=== PATIENT | male | born 1975 | race Caucasian/White ===

== ENCOUNTER 2021-06-11 14:21 | Emergency (ER) | payer MEDICAID ==
[~2021-06-11] VITALS: Ht 170.2 cm; Wt 113.6 kg
[2021-06-11 15:02] VITALS: BP 137/109
[2021-06-11] MEDS ORDERED: KEP500T PO (15:53)
[2021-06-11] MEDS ORDERED: LEVE10002 PO (16:37)
== END 2021-06-11 16:24 | disposition home or self-care (01) ==
LOC: ER 14:21
DX: R56.9 Unspecified convulsions (principal); Z76.0 Encounter for issue of repeat prescription
CPT/HCPCS: 99281

== ENCOUNTER 2022-01-26 17:04 | Emergency (ER) | payer MEDICAID ==
[~2022-01-26 17:04] MED LIST: LEVE10002 PO
== END 2022-01-26 19:24 | disposition left against medical advice (07) ==
LOC: ER 17:05
DX: U09.9 Post COVID-19 condition, unspecified (principal); Z53.21 Procedure and treatment not carried out due to patient leaving prior to being seen by health care provider

== ENCOUNTER 2023-10-08 15:39 | Inpatient (IN) | payer MEDICAID ==
[~2023-10-08] VITALS: Ht 170.2 cm; Wt 121.8 kg
[2023-10-08 16:03] LABS: BASOPHILS % (AUTO) 0.3 % (0-1); EOSINOPHILS # (AUTO) 0.1 X10'3 (0-0.9); EOSINOPHILS % (AUTO) 1.2 % (0-6); HEMATOCRIT 45.1 % (42.0-52.0); HEMOGLOBIN 15.5 g/dl (14.0-17.9); LYMPHOCYTES # (AUTO) 1.6 X10'3 (1.1-4.8); LYMPHOCYTES % (AUTO) 16.3 % (21-51); MEAN CORPUSCULAR HEMOGLOBIN 29.7 PG (27.0-31.0); MEAN CORPUSCULAR HGB CONC 34.3 g/dL (33.0-36.5); MEAN CORPUSCULAR VOLUME 86.7 FL (78-98); MEAN PLATELET VOLUME 7.5 FL (7.4-10.4); MONOCYTES # (AUTO) 0.6 X10'3 (0-0.9); NEUTROPHILS # (AUTO) 7.4 X10'3 (1.8-7.7); NEUTROPHILS % (AUTO) 76.2 % (42-75); PLATELET COUNT 220 X10'3 (140-440); RED BLOOD COUNT 5.21 X10'6 (4.70-6.10); RED CELL DISTRIBUTION WIDTH 12.9 % (11.5-14.5); WHITE BLOOD COUNT 9.8 X10'3 (4.5-11.0)
[2023-10-08 16:30] LABS: ALANINE AMINOTRANSFERASE 48 U/L (12-78); ALBUMIN 3.8 G/DL (3.4-5.0); ALBUMIN/GLOBULIN RATIO 0.9 (1.1-1.5); ALKALINE PHOSPHATASE 91 IU/L (46-116); ANION GAP 8 (8-16); ASPARTATE AMINO TRANSFERASE 21 U/L (10-37); BILIRUBIN,TOTAL 0.7 MG/DL (0.1-1.0); BLOOD UREA NITROGEN 11 MG/DL (7-18); BUN/CREATININE RATIO 10.7 (10.0-20.0); CALCIUM 8.4 MG/DL (8.5-10.1); CHLORIDE 101 MMOL/L (99-107); CREATININE 1.03 MG/DL (0.60-1.10); GLUCOSE 125 MG/DL (70-104); SODIUM 137 MMOL/L (135-145); TOTAL CARBON DIOXIDE 27.6 MMOL/L (24-32); TOTAL PROTEIN 7.9 G/DL (6.4-8.2); eCRCL 83 ML/MIN; eGFR 77 ML/MIN
[2023-10-08] MEDS ORDERED: iohexol 350MG/ML 100ml bottle IV ONE (18:11)
[2023-10-08] MEDS: dexamethasone sod phosphate 10mg/ml inj IV STA (18:36)
[2023-10-08] MEDS: diphenhydrAMINE 50 mg/ml inj ONE (18:39)
[2023-10-08] MEDS: LORazepam 2 mg/ml vial IV ONE (18:40)
[2023-10-08] MEDS: LORazepam 2 mg/ml vial ONE (18:40)
[2023-10-08] MEDS: diphenhydrAMINE 50 mg/ml inj IV ONE ×2 (18:40)
[2023-10-08] MEDS ORDERED: codeine/proMETHazine 5ml UD syrup PO ONE (18:45)
[2023-10-08] MEDS ORDERED: albuterol 2.5 MG/3 ML nebule CONTNEB PRN (19:00)
[2023-10-08] MEDS: normal saline 1000ml 1,000 ML IV ONE (19:39)
[2023-10-08] MEDS: benzonatate 100mg capsule PO ONE (19:39)
[2023-10-08] MEDS: CefTRIAXone/D5W-Rocephin 1gm 50 ML IV ONE (19:39)
[2023-10-08] MEDS: azithromycin/NS 500mg/250ml 250 ML IV ONE (20:15)
[2023-10-08] MEDS: guaiFENesin 200mg/20mg codeine phos 10ml UD oral syrup PO ONE ×2 (20:16)
[2023-10-08] MEDS ORDERED: magnesium 4gm in 100ml NS 100 ML IV PRN (21:10)
[2023-10-08] MEDS ORDERED: potassium Cl 20 mEq SR tablet PO PRN (21:10)
[2023-10-08] MEDS ORDERED: magnesium 2GM in 50ml NS 50 ML IV PRN (21:10)
[2023-10-08] MEDS ORDERED: ondansetron/PF 4mg/2ml inj IV PRN (21:10)
[2023-10-08] MEDS ORDERED: potassium Cl 40MEQ/1/2NS 520ml 520 ML IV PRN (21:10)
[2023-10-08] MEDS: normal saline 1000ml 1,000 ML IV SCH (21:23)
[2023-10-08 21:31] LABS: BILIRUBIN,URINE NEGATIVE (Neg); CLARITY,URINE CLEAR (Clear); COLOR,URINE YELLOW (Yellow); GLUCOSE, URINE NEGATIVE (Neg); KETONES,URINE NEGATIVE (Neg); LEUKOCYTE ESTERASE ,URINE NEGATIVE (Neg); NITRITES, URINE NEGATIVE (Neg); OCCULT BLOOD,URINE NEGATIVE (Neg); PROTEIN,URINE NEGATIVE (Neg); UROBILINOGEN,URINE 0.2 E.U/dL (0.2-1.0)
[2023-10-08 21:33] LABS: MAGNESIUM 2.1 MG/DL (1.5-2.4); PHOSPHORUS 2.8 MG/DL (2.3-4.5)
[2023-10-08] MEDS ORDERED: albuterol 2.5 MG/3 ML nebule NEB PRN (21:40)
[2023-10-08 21:43] LABS: UA COLLECTION TYPE URINAL
[2023-10-08 21:47] VITALS: PULSE 89; RESP 16; O2SAT 94
[2023-10-08] MEDS ORDERED: LEVE10006 PO (22:06)
[2023-10-08] MEDS: levetiracetam 250mg tablet PO ONE (22:25)
[2023-10-08 23:14] VITALS: PULSE 107; RESP 18; O2SAT 93
[2023-10-08] MEDS: ipratropium/albuterol 3ml nebule NEB SCH (23:14)
[2023-10-08 23:21] VITALS: PULSE 101; RESP 16
[2023-10-09] VITALS (14 sets, daily range): BP systolic 110–130; BP diastolic 73–81; PULSE 93–115; RESP 12–19; TEMP 97.5–98.4; O2SAT 90–95
[2023-10-09] MEDS ORDERED: albuterol 2.5 MG/3 ML nebule NEB SCH
[2023-10-09] MEDS: LORazepam 1 MG tablet PO ONE (03:06)
[2023-10-09] MEDS: K and/or MAG REPLACEMENT MC SCH (08:00)
[2023-10-09 08:13] LABS: BASOPHILS % (AUTO) 0.1 % (0-1); EOSINOPHILS % (AUTO) 0 % (0-6); HEMATOCRIT 41.7 % (42.0-52.0); HEMOGLOBIN 14.2 g/dl (14.0-17.9); LYMPHOCYTES # (AUTO) 1.3 X10'3 (1.1-4.8); LYMPHOCYTES % (AUTO) 12.9 % (21-51); MEAN CORPUSCULAR HEMOGLOBIN 29.6 PG (27.0-31.0); MEAN CORPUSCULAR HGB CONC 34.1 g/dL (33.0-36.5); MEAN PLATELET VOLUME 7.7 FL (7.4-10.4); MONOCYTES # (AUTO) 0.5 X10'3 (0-0.9); MONOCYTES % (AUTO) 4.7 % (2-12); NEUTROPHILS # (AUTO) 8.2 X10'3 (1.8-7.7); NEUTROPHILS % (AUTO) 82.3 % (42-75); PLATELET COUNT 227 X10'3 (140-440); RED BLOOD COUNT 4.79 X10'6 (4.70-6.10); RED CELL DISTRIBUTION WIDTH 12.8 % (11.5-14.5); WHITE BLOOD COUNT 9.9 X10'3 (4.5-11.0)
[2023-10-09] MEDS: azithromycin 250mg tablet PO SCH (08:34)
[2023-10-09] MEDS: levetiracetam 250mg tablet PO SCH (08:35)
[2023-10-09] MEDS: benzonatate 100mg capsule PO SCH (08:35)
[2023-10-09] MEDS: heparin, porcine 5000 units/ml vial SQ SCH (08:35)
[2023-10-09] MEDS: CefTRIAXone/D5W-Rocephin 1gm 50 ML IV SCH (08:36)
[2023-10-09 08:38] LABS: ALANINE AMINOTRANSFERASE 39 U/L (12-78); ALBUMIN 3.2 G/DL (3.4-5.0); ALBUMIN/GLOBULIN RATIO 0.8 (1.1-1.5); ALKALINE PHOSPHATASE 75 IU/L (46-116); ANION GAP 7 (8-16); ASPARTATE AMINO TRANSFERASE 15 U/L (10-37); BILIRUBIN,TOTAL 0.4 MG/DL (0.1-1.0); BLOOD UREA NITROGEN 15 MG/DL (7-18); BUN/CREATININE RATIO 15.6 (10.0-20.0); CALCIUM 8.6 MG/DL (8.5-10.1); CHLORIDE 103 MMOL/L (99-107); CREATININE 0.96 MG/DL (0.60-1.10); GLUCOSE 143 MG/DL (70-104); MAGNESIUM 2.1 MG/DL (1.5-2.4); SODIUM 138 MMOL/L (135-145); TOTAL CARBON DIOXIDE 27.9 MMOL/L (24-32); TOTAL PROTEIN 7.2 G/DL (6.4-8.2); eCRCL 89 ML/MIN; eGFR 84 ML/MIN
[2023-10-10] VITALS (16 sets, daily range): BP systolic 96–135; BP diastolic 70–81; PULSE 78–98; RESP 12–20; TEMP 97.2–98; O2SAT 93–95
[2023-10-10] MEDS: guaiFENesin/DM 10ml UD oral syrup PO ONE ×2 (02:07→02:21)
[2023-10-10 06:23] LABS: ALANINE AMINOTRANSFERASE 36 U/L (12-78); ALBUMIN/GLOBULIN RATIO 0.8 (1.1-1.5); ALKALINE PHOSPHATASE 72 IU/L (46-116); ANION GAP 9 (8-16); ASPARTATE AMINO TRANSFERASE 18 U/L (10-37); BILIRUBIN,TOTAL 0.3 MG/DL (0.1-1.0); BLOOD UREA NITROGEN 15 MG/DL (7-18); CALCIUM 8.1 MG/DL (8.5-10.1); CHLORIDE 105 MMOL/L (99-107); CREATININE 0.94 MG/DL (0.60-1.10); GLUCOSE 126 MG/DL (70-104); MAGNESIUM 2.2 MG/DL (1.5-2.4); POTASSIUM 3.4 MMOL/L (3.5-5.1); SODIUM 140 MMOL/L (135-145); TOTAL CARBON DIOXIDE 26.1 MMOL/L (24-32); TOTAL PROTEIN 6.8 G/DL (6.4-8.2); eCRCL 91 ML/MIN; eGFR 86 ML/MIN
[2023-10-10 06:32] LABS: BASOPHILS % (AUTO) 0.2 % (0-1); EOSINOPHILS % (AUTO) 0.4 % (0-6); HEMATOCRIT 39.9 % (42.0-52.0); HEMOGLOBIN 13.8 g/dl (14.0-17.9); LYMPHOCYTES # (AUTO) 2.4 X10'3 (1.1-4.8); MEAN CORPUSCULAR HEMOGLOBIN 30.7 PG (27.0-31.0); MEAN CORPUSCULAR HGB CONC 34.6 g/dL (33.0-36.5); MEAN CORPUSCULAR VOLUME 88.8 FL (78-98); MEAN PLATELET VOLUME 7.9 FL (7.4-10.4); MONOCYTES # (AUTO) 0.6 X10'3 (0-0.9); MONOCYTES % (AUTO) 5.8 % (2-12); NEUTROPHILS # (AUTO) 6.9 X10'3 (1.8-7.7); NEUTROPHILS % (AUTO) 69.6 % (42-75); PLATELET COUNT 226 X10'3 (140-440); RED CELL DISTRIBUTION WIDTH 12.9 % (11.5-14.5); WHITE BLOOD COUNT 9.9 X10'3 (4.5-11.0)
[2023-10-10] MEDS: acetaminophen 325mg tablet PO PRN (09:25)
[2023-10-10] MEDS: potassium Cl 20 mEq SR tablet PO PRN (13:34)
[2023-10-11] VITALS (14 sets, daily range): BP systolic 109–133; BP diastolic 66–95; PULSE 72–103; RESP 12–20; TEMP 98–98.3; O2SAT 92–96
[2023-10-11 03:17] LABS: BASOPHILS % (AUTO) 0.3 % (0-1); EOSINOPHILS # (AUTO) 0.1 X10'3 (0-0.9); EOSINOPHILS % (AUTO) 0.9 % (0-6); HEMATOCRIT 43.1 % (42.0-52.0); HEMOGLOBIN 14.5 g/dl (14.0-17.9); LYMPHOCYTES # (AUTO) 2.4 X10'3 (1.1-4.8); LYMPHOCYTES % (AUTO) 29.3 % (21-51); MEAN CORPUSCULAR HEMOGLOBIN 29.7 PG (27.0-31.0); MEAN CORPUSCULAR HGB CONC 33.6 g/dL (33.0-36.5); MEAN CORPUSCULAR VOLUME 88.4 FL (78-98); MEAN PLATELET VOLUME 7.7 FL (7.4-10.4); MONOCYTES # (AUTO) 0.5 X10'3 (0-0.9); MONOCYTES % (AUTO) 5.9 % (2-12); NEUTROPHILS # (AUTO) 5.3 X10'3 (1.8-7.7); NEUTROPHILS % (AUTO) 63.6 % (42-75); PLATELET COUNT 231 X10'3 (140-440); RED BLOOD COUNT 4.88 X10'6 (4.70-6.10); RED CELL DISTRIBUTION WIDTH 12.9 % (11.5-14.5); WHITE BLOOD COUNT 8.3 X10'3 (4.5-11.0)
[2023-10-11 03:31] LABS: ALANINE AMINOTRANSFERASE 49 U/L (12-78); ALBUMIN 3.4 G/DL (3.4-5.0); ALBUMIN/GLOBULIN RATIO 0.9 (1.1-1.5); ALKALINE PHOSPHATASE 62 IU/L (46-116); ANION GAP 8 (8-16); ASPARTATE AMINO TRANSFERASE 23 U/L (10-37); BILIRUBIN,TOTAL 0.3 MG/DL (0.1-1.0); BLOOD UREA NITROGEN 17 MG/DL (7-18); BUN/CREATININE RATIO 16.8 (10.0-20.0); CHLORIDE 105 MMOL/L (99-107); CREATININE 1.01 MG/DL (0.60-1.10); GLUCOSE 101 MG/DL (70-104); MAGNESIUM 2.3 MG/DL (1.5-2.4); SODIUM 142 MMOL/L (135-145); TOTAL CARBON DIOXIDE 29.1 MMOL/L (24-32); TOTAL PROTEIN 7.2 G/DL (6.4-8.2); eCRCL 85 ML/MIN; eGFR 79 ML/MIN
[2023-10-11] MEDS: guaiFENesin/DM 10ml UD oral syrup PO PRN (15:51)
[2023-10-12] MEDS: benzocaine/menthol oral lozeng 1 EACH BOX MM PRN (02:35)
[2023-10-12 06:00] VITALS: BP 121/82; PULSE 87; RESP 20; TEMP 97.8; O2SAT 93
[2023-10-12 06:18] LABS: BASOPHILS % (AUTO) 0.3 % (0-1); EOSINOPHILS # (AUTO) 0.1 X10'3 (0-0.9); EOSINOPHILS % (AUTO) 1.3 % (0-6); HEMATOCRIT 44.9 % (42.0-52.0); HEMOGLOBIN 15.5 g/dl (14.0-17.9); LYMPHOCYTES # (AUTO) 2.6 X10'3 (1.1-4.8); LYMPHOCYTES % (AUTO) 28.5 % (21-51); MEAN CORPUSCULAR HEMOGLOBIN 30.2 PG (27.0-31.0); MEAN CORPUSCULAR HGB CONC 34.6 g/dL (33.0-36.5); MEAN CORPUSCULAR VOLUME 87.2 FL (78-98); MEAN PLATELET VOLUME 7.8 FL (7.4-10.4); MONOCYTES # (AUTO) 0.6 X10'3 (0-0.9); MONOCYTES % (AUTO) 6.8 % (2-12); NEUTROPHILS # (AUTO) 5.8 X10'3 (1.8-7.7); NEUTROPHILS % (AUTO) 63.1 % (42-75); PLATELET COUNT 241 X10'3 (140-440); RED BLOOD COUNT 5.14 X10'6 (4.70-6.10); RED CELL DISTRIBUTION WIDTH 12.6 % (11.5-14.5); WHITE BLOOD COUNT 9.2 X10'3 (4.5-11.0)
[2023-10-12 06:20] LABS: ALANINE AMINOTRANSFERASE 70 U/L (12-78); ALBUMIN 3.4 G/DL (3.4-5.0); ALBUMIN/GLOBULIN RATIO 0.8 (1.1-1.5); ALKALINE PHOSPHATASE 75 IU/L (46-116); ANION GAP 9 (8-16); ASPARTATE AMINO TRANSFERASE 36 U/L (10-37); BILIRUBIN,TOTAL 0.7 MG/DL (0.1-1.0); BLOOD UREA NITROGEN 19 MG/DL (7-18); BUN/CREATININE RATIO 19.8 (10.0-20.0); CALCIUM 8.8 MG/DL (8.5-10.1); CHLORIDE 100 MMOL/L (99-107); CREATININE 0.96 MG/DL (0.60-1.10); GLUCOSE 95 MG/DL (70-104); MAGNESIUM 2.2 MG/DL (1.5-2.4); SODIUM 136 MMOL/L (135-145); TOTAL CARBON DIOXIDE 27.1 MMOL/L (24-32); TOTAL PROTEIN 7.5 G/DL (6.4-8.2); eCRCL 89 ML/MIN; eGFR 84 ML/MIN
[2023-10-12 08:55] VITALS: PULSE 86; RESP 18; O2SAT 94
[2023-10-12 09:05] VITALS: PULSE 112; RESP 18
[2023-10-12] MEDS ORDERED: ROBDML PO (09:37)
[2023-10-12] MEDS ORDERED: LEVO-65 PO (09:38)
[2023-10-12] MEDS ORDERED: ALBU18HF2 IH (09:41)
[2023-10-12 10:00] VITALS: BP 111/81; PULSE 92; RESP 16; TEMP 97.7; O2SAT 92
== END 2023-10-12 16:50 | disposition home or self-care (01) | DRG 139 ==
LOC: ER 15:40 → ED HOLD 21:14 → EDBEDREQ 10-09 18:24 → SUR 3N 10-09 18:55
PROVIDERS: ADMIT Internal Medicine; ATTEND Internal Medicine
DX: J18.9 Pneumonia, unspecified organism (principal); E87.6 Hypokalemia; Z20.822 Contact with and (suspected) exposure to COVID-19; J06.9 Acute upper respiratory infection, unspecified; G40.909 Epilepsy, unspecified, not intractable, without status epilepticus; Z79.899 Other long term (current) drug therapy
CPT/HCPCS: 36415; 71045; 71275; 80053; 81003; 83605; 83735; 84100; 84132; 84484; 85025; 87040; 87081; 87502; 87503; 87634; 93005; 94640; 94760; 96365; 96367; 99285; A4615; A6258; G0378; J0456; J0696; J1100; J1200; J1644; J2060; J3490; J7030; Q9967

== ENCOUNTER 2023-10-21 16:58 | Outpatient (CLI) | payer MEDICAID ==
[~2023-10-21 16:58] MED LIST changes: +ALBU18HF2 IH; -LEVE10002 PO; +LEVE10006 PO; +ROBDML PO
== END 2023-10-21 23:59 | disposition home or self-care (01) ==
LOC: RAD 16:58
PROVIDERS: ATTEND Nurse Practitioner Family
DX: J15.9 Unspecified bacterial pneumonia (principal)
CPT/HCPCS: 71046

== ENCOUNTER 2024-02-13 14:57 | Emergency (ER) | payer MEDICAID ==
[~2024-02-13] VITALS: Ht 170.2 cm; Wt 116.4 kg
[2024-02-13 15:06] VITALS: TEMP 98.1
[2024-02-13 15:31] LABS: BILIRUBIN,URINE SMALL (Neg); CLARITY,URINE CLEAR (Clear); COLOR,URINE YELLOW (Yellow); GLUCOSE, URINE NEGATIVE (Neg); KETONES,URINE TRACE mg/dl (Neg); LEUKOCYTE ESTERASE ,URINE NEGATIVE (Neg); NITRITES, URINE NEGATIVE (Neg); OCCULT BLOOD,URINE NEGATIVE (Neg); PROTEIN,URINE 100 mg/dl (Neg)
[2024-02-13 15:36] LABS: BACTERIA,URINE NONE SEEN /HPF (Neg); MUCUS STRANDS FEW /LPF (Neg); RBC,URINE 0-2 /HPF (0-2); SQUAMOUS EPITHELIAL CELL,UR FEW /LPF (FEW); UA COLLECTION TYPE CLN CATCH MIDSTREAM; WBC,URINE NONE SEEN /HPF (0-4)
[2024-02-13 15:42] LABS: BASOPHILS % (AUTO) 0.3 % (0-1); EOSINOPHILS % (AUTO) 0.1 % (0-6); HEMATOCRIT 44.4 % (42.0-52.0); HEMOGLOBIN 15.5 g/dl (14.0-17.9); LYMPHOCYTES # (AUTO) 1.5 X10'3 (1.1-4.8); LYMPHOCYTES % (AUTO) 31.3 % (21-51); MEAN CORPUSCULAR HEMOGLOBIN 30.3 PG (27.0-31.0); MEAN CORPUSCULAR HGB CONC 34.8 g/dL (33.0-36.5); MEAN CORPUSCULAR VOLUME 87.2 FL (78-98); MONOCYTES # (AUTO) 0.5 X10'3 (0-0.9); MONOCYTES % (AUTO) 10.7 % (2-12); NEUTROPHILS # (AUTO) 2.8 X10'3 (1.8-7.7); NEUTROPHILS % (AUTO) 57.6 % (42-75); PLATELET COUNT 149 X10'3 (140-440); RED CELL DISTRIBUTION WIDTH 12.8 % (11.5-14.5); WHITE BLOOD COUNT 4.9 X10'3 (4.5-11.0)
[2024-02-13 15:58] LABS: ALANINE AMINOTRANSFERASE 106 U/L (12-78); ALBUMIN 3.9 G/DL (3.4-5.0); ALBUMIN/GLOBULIN RATIO 1.1 (1.1-1.5); ALKALINE PHOSPHATASE 55 IU/L (46-116); ANION GAP 9 (8-16); ASPARTATE AMINO TRANSFERASE 55 U/L (10-37); BILIRUBIN,TOTAL 0.9 MG/DL (0.1-1.0); BLOOD UREA NITROGEN 15 MG/DL (7-18); BUN/CREATININE RATIO 12.6 (10.0-20.0); CALCIUM 9.2 MG/DL (8.5-10.1); CHLORIDE 100 MMOL/L (99-107); CREATININE 1.19 MG/DL (0.60-1.10); GLUCOSE 130 MG/DL (70-104); LIPASE 39 U/L (16-77); POTASSIUM 3.5 MMOL/L (3.5-5.1); SODIUM 136 MMOL/L (135-145); TOTAL PROTEIN 7.5 G/DL (6.4-8.2); eCRCL 72 ML/MIN; eGFR 66 ML/MIN
[2024-02-13] MEDS: glycopyrrolate 0.2mg/ml inj IV ONE (16:23)
[2024-02-13] MEDS: normal saline 1000ML IV soln IVB ONE ×2 (16:23→17:36)
[2024-02-13] MEDS: diphenhydrAMINE 50 mg/ml inj IV ONE (16:24)
[2024-02-13] MEDS: metoclopramide 5 mg/ml inj IV ONE (16:25)
[2024-02-13] MEDS: LIDOcaine 2% Viscous 15ml cup MM ONE (16:38)
[2024-02-13] MEDS: mag hydrox/Alum hydrox/simeth 30ml oral suspension PO ONE (16:39)
[2024-02-13] MEDS: metoclopramide 5 mg/ml inj IM ONE (16:41)
[2024-02-13] MEDS: diphenhydrAMINE 50 mg/ml inj IM ONE (16:42)
[2024-02-13] MEDS ORDERED: OMEP40CA21 PO (17:34)
[2024-02-13] MEDS ORDERED: SUCR1TAB PO (17:34)
[2024-02-13] MEDS ORDERED: ONDA-243 PO (17:34)
[2024-02-13 17:45] VITALS: BP 108/71; PULSE 83; RESP 16; O2SAT 98
[2024-02-14] MEDS ORDERED: AMOX-117 PO (17:09)
== END 2024-02-13 17:51 | disposition home or self-care (01) ==
LOC: ER 14:58
DX: R10.84 Generalized abdominal pain (principal); R11.0 Nausea; Z79.899 Other long term (current) drug therapy; Z79.2 Long term (current) use of antibiotics
CPT/HCPCS: 36415; 80053; 81001; 83690; 85025; 96372; 99284; J1200; J2765

== ENCOUNTER 2024-02-14 15:41 | Emergency (ER) | payer MEDICAID ==
[~2024-02-14] VITALS: Ht 170.2 cm; Wt 120.0 kg
[~2024-02-14 15:41] MED LIST changes: +OMEP40CA21 PO; +ONDA-243 PO; +SUCR1TAB PO
[2024-02-14 16:44] LABS: BASOPHILS % (AUTO) 0.2 % (0-1); EOSINOPHILS % (AUTO) 0.5 % (0-6); HEMATOCRIT 45.3 % (42.0-52.0); HEMOGLOBIN 15.6 g/dl (14.0-17.9); LYMPHOCYTES # (AUTO) 1.8 X10'3 (1.1-4.8); LYMPHOCYTES % (AUTO) 41.9 % (21-51); MEAN CORPUSCULAR HEMOGLOBIN 29.9 PG (27.0-31.0); MEAN CORPUSCULAR HGB CONC 34.3 g/dL (33.0-36.5); MEAN PLATELET VOLUME 8.6 FL (7.4-10.4); MONOCYTES # (AUTO) 0.3 X10'3 (0-0.9); MONOCYTES % (AUTO) 7.9 % (2-12); NEUTROPHILS # (AUTO) 2.1 X10'3 (1.8-7.7); NEUTROPHILS % (AUTO) 49.5 % (42-75); PLATELET COUNT 151 X10'3 (140-440); RED BLOOD COUNT 5.21 X10'6 (4.70-6.10); WHITE BLOOD COUNT 4.2 X10'3 (4.5-11.0)
[2024-02-14 16:51] LABS: ANION GAP 10 (8-16); BLOOD UREA NITROGEN 14 MG/DL (7-18); BUN/CREATININE RATIO 10.8 (10.0-20.0); CALCIUM 8.8 MG/DL (8.5-10.1); CHLORIDE 101 MMOL/L (99-107); GLUCOSE 168 MG/DL (70-104); POTASSIUM 3.4 MMOL/L (3.5-5.1); PRO BRAIN NATRIURETIC PEPTIDE < 30 PG/ML (0-125); SODIUM 138 MMOL/L (135-145); TOTAL CARBON DIOXIDE 27.2 MMOL/L (24-32); eCRCL 66 ML/MIN; eGFR 59 ML/MIN
[2024-02-14] MEDS ORDERED: AMOX-117 PO (17:09)
[2024-02-14 17:18] VITALS: BP 142/80; PULSE 83; RESP 18; TEMP 98.9; O2SAT 96
== END 2024-02-14 17:20 | disposition home or self-care (01) ==
LOC: ER 15:41
DX: J40 Bronchitis, not specified as acute or chronic (principal); Z79.899 Other long term (current) drug therapy
CPT/HCPCS: 36415; 71046; 80048; 83605; 83880; 85025; 87040; 99284

== ENCOUNTER 2024-05-26 17:48 | Inpatient (IN) | payer MEDICAID ==
[~2024-05-26] VITALS: Ht 172.7 cm; Wt 111.3 kg
[~2024-05-26 17:48] MED LIST changes: -OMEP40CA21 PO
[2024-05-26 18:18] LABS: BASOPHILS % (AUTO) 0.4 % (0-1); EOSINOPHILS % (AUTO) 0.1 % (0-6); HEMATOCRIT 45.7 % (42.0-52.0); HEMOGLOBIN 15.9 g/dl (14.0-17.9); LYMPHOCYTES # (AUTO) 1.6 X10'3 (1.1-4.8); LYMPHOCYTES % (AUTO) 14.7 % (21-51); MEAN CORPUSCULAR HEMOGLOBIN 30.7 PG (27.0-31.0); MEAN CORPUSCULAR HGB CONC 34.9 g/dL (33.0-36.5); MEAN CORPUSCULAR VOLUME 87.9 FL (78-98); MEAN PLATELET VOLUME 7.8 FL (7.4-10.4); MONOCYTES # (AUTO) 0.6 X10'3 (0-0.9); MONOCYTES % (AUTO) 5.7 % (2-12); NEUTROPHILS # (AUTO) 8.3 X10'3 (1.8-7.7); NEUTROPHILS % (AUTO) 79.1 % (42-75); PLATELET COUNT 205 X10'3 (140-440); RED CELL DISTRIBUTION WIDTH 12.8 % (11.5-14.5); WHITE BLOOD COUNT 10.5 X10'3 (4.5-11.0)
[2024-05-26 18:31] LABS: ALANINE AMINOTRANSFERASE 37 U/L (12-78); ALBUMIN 3.8 G/DL (3.4-5.0); ALKALINE PHOSPHATASE 63 IU/L (46-116); ANION GAP 9 (8-16); ASPARTATE AMINO TRANSFERASE 16 U/L (10-37); BILIRUBIN,TOTAL 1.1 MG/DL (0.1-1.0); BLOOD UREA NITROGEN 20 MG/DL (7-18); BUN/CREATININE RATIO 16.5 (10.0-20.0); CHLORIDE 100 MMOL/L (99-107); CREATININE 1.21 MG/DL (0.60-1.10); GLUCOSE 171 MG/DL (70-104); LIPASE 162 U/L (16-77); POTASSIUM 3.8 MMOL/L (3.5-5.1); SODIUM 134 MMOL/L (135-145); TOTAL CARBON DIOXIDE 25.4 MMOL/L (24-32); TOTAL PROTEIN 7.5 G/DL (6.4-8.2); eCRCL 73 ML/MIN; eGFR 64 ML/MIN
[2024-05-26] MEDS: normal saline 1000ML IV soln IVB ONE ×2 (19:28→21:36)
[2024-05-26 20:20] LABS: BILIRUBIN,URINE SMALL (Neg); CLARITY,URINE CLEAR (Clear); COLOR,URINE YELLOW (Yellow); GLUCOSE, URINE NEGATIVE (Neg); KETONES,URINE TRACE mg/dl (Neg); LEUKOCYTE ESTERASE ,URINE NEGATIVE (Neg); OCCULT BLOOD,URINE NEGATIVE (Neg); PH,URINE 6.5 (4.8-8.0); PROTEIN,URINE 30 mg/dl (Neg)
[2024-05-26 20:34] LABS: UA COLLECTION TYPE NON-SPECIFIED
[2024-05-26 20:35] LABS: BACTERIA,URINE FEW /HPF (Neg); NITRITES, URINE NEGATIVE (Neg); RBC,URINE NONE SEEN /HPF (0-2); SQUAMOUS EPITHELIAL CELL,UR FEW /LPF (FEW); WBC,URINE NONE SEEN /HPF (0-4)
[2024-05-26 20:36] LABS: MUCUS STRANDS FEW /LPF (Neg)
[2024-05-26] MEDS: ondansetron/PF 4mg/2ml inj IV ONE (21:35)
[2024-05-26] MEDS: morphine 4 MG/ML inj SYRINge IV ONE (21:35)
[2024-05-26] MEDS ORDERED: LEVO-65 PO (21:39)
[2024-05-26] MEDS ORDERED: mag hydrox/Alum hydrox/simeth 30ml oral suspension PO PRN (21:50)
[2024-05-26] MEDS ORDERED: acetaminophen 325mg tablet PO PRN ×2 (21:50)
[2024-05-26] MEDS ORDERED: magnesium sulf-water 4G/100mL 100 ML IV PRN (21:50)
[2024-05-26] MEDS ORDERED: magnesium sulf-water 2g/50mL 50 ML IV PRN (21:50)
[2024-05-26] MEDS ORDERED: magnesium Cl slow-release 64mg tablet PO PRN (21:50)
[2024-05-26] MEDS ORDERED: magnesium hydroxide 30ml (MOM) UD suspension PO PRN (21:50)
[2024-05-26] MEDS ORDERED: potassium Cl 20 mEq SR tablet PO PRN ×2 (21:50)
[2024-05-26] MEDS ORDERED: potassium Cl 40MEQ/1/2NS 520ml 520 ML IV PRN (21:50)
[2024-05-26] MEDS ORDERED: HYDROcodone/acetaminophen 10/325mg tab PO PRN (21:50)
[2024-05-26] MEDS ORDERED: morphine 2 MG/ML inj. syringe IV PRN (21:50)
[2024-05-26 22:25] LABS: INR 1.1 INR; PROTHROMBIN TIME 11.3 SECONDS (9.0-12.0)
[2024-05-26 22:35] LABS: AMYLASE 54 U/L (25-115); PRO BRAIN NATRIURETIC PEPTIDE < 30 PG/ML (0-125)
[2024-05-26 22:36] LABS: HEMOGLOBIN A1C 5.3 % (4.5-6.2)
[2024-05-26 23:15] VITALS: BP 143/83; PULSE 75; RESP 20; TEMP 98.4; O2SAT 98
[2024-05-26] MEDS: normal saline 1000ml 1,000 ML IV SCH (23:49)
[2024-05-26] MEDS: levetiracetam 250mg tablet PO SCH (23:49)
[2024-05-27] MEDS: morphine 2 MG/ML inj. syringe IV PRN (00:03)
[2024-05-27] MEDS: ondansetron/PF 4mg/2ml inj IV PRN (00:03)
[2024-05-27 06:00] VITALS: BP 126/88; PULSE 86; RESP 18; TEMP 98.6; O2SAT 97
[2024-05-27 06:05] LABS: BASOPHILS % (AUTO) 0.4 % (0-1); EOSINOPHILS # (AUTO) 0.1 X10'3 (0-0.9); EOSINOPHILS % (AUTO) 0.7 % (0-6); HEMATOCRIT 40.4 % (42.0-52.0); LYMPHOCYTES # (AUTO) 1.7 X10'3 (1.1-4.8); MEAN CORPUSCULAR HEMOGLOBIN 30.5 PG (27.0-31.0); MEAN CORPUSCULAR HGB CONC 34.8 g/dL (33.0-36.5); MEAN CORPUSCULAR VOLUME 87.7 FL (78-98); MEAN PLATELET VOLUME 7.8 FL (7.4-10.4); MONOCYTES # (AUTO) 0.7 X10'3 (0-0.9); NEUTROPHILS # (AUTO) 6.4 X10'3 (1.8-7.7); NEUTROPHILS % (AUTO) 71.9 % (42-75); PLATELET COUNT 177 X10'3 (140-440); RED BLOOD COUNT 4.61 X10'6 (4.70-6.10); RED CELL DISTRIBUTION WIDTH 12.8 % (11.5-14.5); WHITE BLOOD COUNT 8.9 X10'3 (4.5-11.0)
[2024-05-27 06:13] LABS: ALANINE AMINOTRANSFERASE 34 U/L (12-78); ALBUMIN 3.2 G/DL (3.4-5.0); ALBUMIN/GLOBULIN RATIO 0.9 (1.1-1.5); ALKALINE PHOSPHATASE 55 IU/L (46-116); ANION GAP 5 (8-16); ASPARTATE AMINO TRANSFERASE 16 U/L (10-37); BILIRUBIN,TOTAL 0.9 MG/DL (0.1-1.0); BLOOD UREA NITROGEN 18 MG/DL (7-18); BUN/CREATININE RATIO 18.4 (10.0-20.0); CALCIUM 8.2 MG/DL (8.5-10.1); CHLORIDE 104 MMOL/L (99-107); CHOL/HDL RATIO 4.1 (0.00-4.99); CHOLESTEROL 134 MG/DL (0-200); CREATININE 0.98 MG/DL (0.60-1.10); GLUCOSE 93 MG/DL (70-104); HDL CHOLESTEROL 33 MG/DL (35-60); LDL CHOLESTEROL 93 MG/DL (50-100); PHOSPHORUS 2.8 MG/DL (2.3-4.5); SODIUM 137 MMOL/L (135-145); TOTAL CARBON DIOXIDE 28.2 MMOL/L (24-32); TOTAL PROTEIN 6.6 G/DL (6.4-8.2); TRIGLYCERIDES 89 MG/DL (20-135); eCRCL 90 ML/MIN; eGFR 82 ML/MIN
[2024-05-27 06:18] LABS: INR 1.1 INR; PROTHROMBIN TIME 11.1 SECONDS (9.0-12.0)
[2024-05-27 06:48] LABS: BILIRUBIN,URINE NEGATIVE (Neg); CLARITY,URINE CLEAR (Clear); COLOR,URINE YELLOW (Yellow); GLUCOSE, URINE NEGATIVE (Neg); KETONES,URINE TRACE mg/dl (Neg); LEUKOCYTE ESTERASE ,URINE NEGATIVE (Neg); NITRITES, URINE NEGATIVE (Neg); OCCULT BLOOD,URINE NEGATIVE (Neg); PROTEIN,URINE NEGATIVE (Neg); UROBILINOGEN,URINE 0.2 E.U/dL (0.2-1.0)
[2024-05-27 07:04] LABS: POTASSIUM 3.9 MMOL/L (3.5-5.1)
[2024-05-27 07:06] LABS: UA COLLECTION TYPE NON-SPECIFIED
[2024-05-27] MEDS ORDERED: levetiracetam 250mg tablet PO SCH (08:00)
[2024-05-27] MEDS: K and/or MAG REPLACEMENT MC SCH (08:00)
[2024-05-27] MEDS: docusate sod 100mg capsule PO SCH (08:01)
[2024-05-27] MEDS: pantoprazole 40mg Tablet.DR PO SCH (08:01)
[2024-05-27] MEDS: heparin, porcine 5000 units/ml vial SQ SCH (08:02)
[2024-05-27 10:00] VITALS: BP 125/81; PULSE 71; RESP 20; TEMP 98.2; O2SAT 96
[2024-05-27 18:00] VITALS: BP 148/92; PULSE 74; RESP 20; TEMP 97.8; O2SAT 96
[2024-05-27 20:00] VITALS: RESP 20; O2SAT 96
[2024-05-27] MEDS: HYDROcodone/acetaminophen 5mg/325mg tablet PO PRN (21:35)
[2024-05-27 21:47] LABS: URINE AMPHETAMINE SCREEN NEGATIVE (Neg); URINE BARBITUATE SCREEN NEGATIVE (Neg); URINE BENZODIAZEPINES SCREEN NEGATIVE (Neg); URINE CANNABINOID SCREEN POSITIVE (Neg); URINE COCAINE SCREEN NEGATIVE (Neg); URINE METHADONE SCREEN NEGATIVE (Neg); URINE OPIATE SCREEN POSITIVE (Neg); URINE PHENCYCLIDINE SCREEN NEGATIVE (Neg)
[2024-05-27 22:00] VITALS: BP 119/71; PULSE 63; RESP 21; TEMP 98; O2SAT 97
[2024-05-28 05:58] LABS: BASOPHILS % (AUTO) 0.3 % (0-1); EOSINOPHILS # (AUTO) 0.1 X10'3 (0-0.9); EOSINOPHILS % (AUTO) 1.1 % (0-6); HEMATOCRIT 39.8 % (42.0-52.0); HEMOGLOBIN 13.8 g/dl (14.0-17.9); LYMPHOCYTES # (AUTO) 2.4 X10'3 (1.1-4.8); LYMPHOCYTES % (AUTO) 31.7 % (21-51); MEAN CORPUSCULAR HEMOGLOBIN 30.4 PG (27.0-31.0); MEAN CORPUSCULAR HGB CONC 34.7 g/dL (33.0-36.5); MEAN CORPUSCULAR VOLUME 87.6 FL (78-98); MEAN PLATELET VOLUME 8.1 FL (7.4-10.4); MONOCYTES # (AUTO) 0.6 X10'3 (0-0.9); MONOCYTES % (AUTO) 8.1 % (2-12); NEUTROPHILS # (AUTO) 4.5 X10'3 (1.8-7.7); NEUTROPHILS % (AUTO) 58.8 % (42-75); PLATELET COUNT 175 X10'3 (140-440); RED BLOOD COUNT 4.54 X10'6 (4.70-6.10); RED CELL DISTRIBUTION WIDTH 12.5 % (11.5-14.5); WHITE BLOOD COUNT 7.6 X10'3 (4.5-11.0)
[2024-05-28 06:00] VITALS: BP 134/88; PULSE 60; RESP 19; TEMP 97.8; O2SAT 97
[2024-05-28 06:01] LABS: INR 1.1 INR; PROTHROMBIN TIME 11.6 SECONDS (9.0-12.0)
[2024-05-28 06:07] LABS: ALANINE AMINOTRANSFERASE 37 U/L (12-78); ALBUMIN 3.2 G/DL (3.4-5.0); ALKALINE PHOSPHATASE 54 IU/L (46-116); ANION GAP 5 (8-16); ASPARTATE AMINO TRANSFERASE 16 U/L (10-37); BILIRUBIN,TOTAL 0.8 MG/DL (0.1-1.0); BLOOD UREA NITROGEN 13 MG/DL (7-18); BUN/CREATININE RATIO 13.1 (10.0-20.0); CALCIUM 8.4 MG/DL (8.5-10.1); CHLORIDE 104 MMOL/L (99-107); CREATININE 0.99 MG/DL (0.60-1.10); GLUCOSE 86 MG/DL (70-104); MAGNESIUM 2.1 MG/DL (1.5-2.4); PHOSPHORUS 3.1 MG/DL (2.3-4.5); POTASSIUM 3.8 MMOL/L (3.5-5.1); SODIUM 140 MMOL/L (135-145); TOTAL CARBON DIOXIDE 30.7 MMOL/L (24-32); TOTAL PROTEIN 6.5 G/DL (6.4-8.2); eCRCL 89 ML/MIN; eGFR 81 ML/MIN
[2024-05-28 07:24] VITALS: RESP 20; O2SAT 96
[2024-05-28 12:18] VITALS: BP 132/94; PULSE 73; RESP 18; TEMP 97.3; O2SAT 96
[2024-05-28] MEDS ORDERED: HYDR-3964 PO (12:19)
== END 2024-05-28 19:25 | disposition home or self-care (01) | DRG 282 ==
LOC: ER 17:48 → ED HOLD 22:00 → SUR 3N 23:10
PROVIDERS: ADMIT Internal Medicine Critical Care Medicine; ATTEND Family Medicine
DX: K85.90 Acute pancreatitis without necrosis or infection, unspecified (principal); N17.9 Acute kidney failure, unspecified; G40.909 Epilepsy, unspecified, not intractable, without status epilepticus; Z82.49 Family history of ischemic heart disease and other diseases of the circulatory system; Z83.3 Family history of diabetes mellitus
CPT/HCPCS: 36415; 71045; 74176; 80053; 80061; 80305; 80320; 81001; 81003; 82150; 82948; 83036; 83615; 83690; 83735; 83880; 84100; 84484; 85025; 85610; 87081; 99285; G0378; J1644; J2270; J2405; J7030